=== PATIENT | female | born 1985 | race Caucasian/White ===

== ENCOUNTER 2016-11-05 12:02 | Emergency (ER) | payer MEDICAID ==
[~2016-11-05] VITALS: Ht 167.6 cm; Wt 49.9 kg
[2016-11-05 12:02] VITALS: BP 126/86
--- NOTE | 2016-11-05 12:20 | NUR ---
JEFF QUALITY CONTROLLER AT BEDSIDE FOR EVAL.
[2016-11-05] MEDS ORDERED: IV NS 0.9% 1,000 ML BAG IV ONE (12:30)
[2016-11-05] MEDS ORDERED: ONDANSETRON HCL/PF 4 MG/2 ML VIAL IVP ONE (12:30)
[2016-11-05 12:39] LABS: BASOPHILS # (AUTO) 0.1 /CMM (0.0-0.2); BASOPHILS % (AUTO) 1.1 % (0.0-2.0); EOSINOPHILS # (AUTO) 0.1 /CMM (0.0-0.7); EOSINOPHILS % (AUTO) 1.8 % (0.0-6.0); HEMATOCRIT 36 % (33-45); HEMOGLOBIN 12.7 g/dL (11.5-14.8); LYMPHOCYTES # (AUTO) 1.7 /CMM (0.8-4.8); LYMPHOCYTES % (AUTO) 31.1 % (20.0-44.0); MEAN CORPUSCULAR HEMOGLOBIN 29 PG (26.0-33.0); MEAN CORPUSCULAR HGB CONC 35 g/dl (31.0-36.0); MEAN CORPUSCULAR VOLUME 82 fL (82-100); MONOCYTES # (AUTO) 0.4 /CMM (0.1-1.30); MONOCYTES % (AUTO) 8.2 % (2.0-12.0); NEUTROPHILS # (AUTO) 3.2 /CMM (1.8-8.9); NEUTROPHILS % (AUTO) 57.8 % (43.0-81.0); PLATELET COUNT (AUTO) 239 /CMM (150-450); RDW COEFFICIENT OF VARIATION 12.8 (11.5-15.0); RED BLOOD CELL COUNT(AUTO) 4.43 MIL/uL (4.0-5.2); WHITE BLOOD COUNT (AUTO) 5.5 K/uL (4.3-11.0)
[2016-11-05] MEDS ORDERED: IV NS 0.9% 1,000 ML ONE (12:42)
[2016-11-05] MEDS ORDERED: IV SET PRIMARY 1 EA INFUS.SET MC ONE (12:42)
[2016-11-05 12:43] LABS: APPEARANCE,URINE Clear (CLEAR); BILIRUBIN,URINE Negative (NEGATIVE); BLOOD, URINE Negative Ery/uL (NEGATIVE); COLOR,URINE Yellow (YELLOW); KETONES,URINE Negative (NEGATIVE); LEUKOCYTE ESTERASE ,URINE Negative (NEGATIVE); NITRITE, URINE Negative (NEGATIVE); PROTEIN,URINE Negative (NEGATIVE); UGLUCOSE Negative (NEGATIVE); UROBILINOGEN,URINE 0.2 EU/dL (0.2)
--- NOTE | 2016-11-05 12:49 | NUR ---
RADIOLOGY AT BEDSIDE FOR L FOOT XRAY.
--- NOTE | 2016-11-05 12:55 | NUR ---
PT TO RADIOLOGY FOR ABDOMINAL CT SCAN VIA [facility].
[2016-11-05 12:59] LABS: ALBUMIN 4.2 g/dL (3.4-5.0); BILIRUBIN,DIRECT 0.1 mg/dL (0.0-0.2); BILIRUBIN,TOTAL 0.4 mg/dL (0.2-1.0); CALCIUM, SERUM 9.6 mg/dL (8.5-10.1); CREATININE 0.7 mg/dL (0.6-1.3); POTASSIUM 3.9 mmol/L (3.5-5.1); TOTAL PROTEIN, SERUM 8.3 g/dL (6.4-8.2)
--- NOTE | 2016-11-05 13:51 | NUR ---
Patient discharged to home in stable condition. Written and verbal after care instructions given. Patient verbalizes understanding of instruction.IV removed. Catheter intact and site benign. Pressure and 4x4 applied to site. No bleeding noted.
== END 2016-11-05 13:52 | disposition home or self-care (01) ==
LOC: ER 12:04
DX: R10.32 Left lower quadrant pain (principal); S90.112A Contusion of left great toe without damage to nail, initial encounter; W22.8XXA Striking against or struck by other objects, initial encounter; Y93.89 Activity, other specified; Y92.89 Other specified places as the place of occurrence of the external cause; Y99.8 Other external cause status
CPT/HCPCS: 36415; 73630-TC; 80048-TC; 80076-TC; 81000-TC; 83690-TC; 85025-TC; A4606; J7030; Z7610

== ENCOUNTER 2017-06-10 22:20 | Emergency (ER) | payer MEDICAID ==
[~2017-06-10] VITALS: Ht 172.7 cm; Wt 50.3 kg
[2017-06-10 22:26] VITALS: BP 112/72
[2017-06-11] MEDS ORDERED: IBUPROFEN 400 MG TABLET ONE (00:42)
[2017-06-11] MEDS ORDERED: ONDANSETRON 4 MG TAB.RAPDIS ONE (00:42)
[2017-06-11] MEDS ORDERED: HYDROCODONE/APAP 5/325MG 1 EACH TABLET ONE (00:42)
--- NOTE | 2017-06-11 00:53 | NUR ---
medicated patient as ordered.
[2017-06-11] MEDS ORDERED: ONDANSETRON 4 MG TAB.RAPDIS SL ONE (01:00)
[2017-06-11] MEDS ORDERED: IBUPROFEN 400 MG TABLET PO ONE (01:00)
[2017-06-11] MEDS ORDERED: HYDROCODONE/APAP 5/325MG 1 EACH TABLET PO ONE (01:00)
== END 2017-06-11 00:54 | disposition home or self-care (01) ==
LOC: ER 22:28
DX: K08.89 Other specified disorders of teeth and supporting structures (principal); R13.19 Other dysphagia
CPT/HCPCS: 99284; A4606; Q0162; Z7610

== ENCOUNTER 2018-03-10 11:25 | Emergency (ER) | payer MEDICAID ==
[~2018-03-10] VITALS: Ht 165.1 cm; Wt 56.2 kg
--- NOTE | 2018-03-10 12:30 | NUR ---
L SIDED RIB PAIN S/P GLF 5 DAYS FACT CHECKER. PT SEEN & EVAL'D BY BRANDI VERA. AAOX3, VSS, NO RESP DISTRESS NOTED. PT BACK FROM XRAY. NAD NOTED @ THIS TIME & WILL CONT TO MONITOR.
--- NOTE | 2018-03-10 13:15 | NUR ---
Patient discharged to home in stable condition. Written and verbal after care instructions given. Patient verbalizes understanding of instruction.
[2018-03-10 13:16] VITALS: BP 118/89
== END 2018-03-10 13:17 | disposition home or self-care (01) ==
LOC: ER 11:26
DX: M25.512 Pain in left shoulder (principal); R07.81 Pleurodynia; Z60.2 Problems related to living alone; W10.8XXA Fall (on) (from) other stairs and steps, initial encounter; Y93.89 Activity, other specified; Y92.098 Other place in other non-institutional residence as the place of occurrence of the external cause; Y99.8 Other external cause status
CPT/HCPCS: 71100-TC; 73030-TC; A4606; Z7610

== ENCOUNTER 2021-03-13 13:25 | Emergency (ER) | payer MEDICAID ==
[~2021-03-13] VITALS: Ht 167.6 cm; Wt 53.1 kg
--- NOTE | 2021-03-13 13:45 | NUR ---
PATIENT BIBS, C/O RIGHT SIDED NUMBNESS OF HER BODY. O SOB. RESPIRATIONS EVEN AND UNLABORED. PATIENT ALERT AND ORIENTED X4. DENIES ANY PAIN AT THIS TIME. WILL CONTINUE TO MONITOR.
[2021-03-13 14:07] LABS: BASOPHILS % (AUTO) 0.9 % (0.0-2.0); EOSINOPHILS % (AUTO) 0.6 % (0.0-6.0); HEMATOCRIT 40 % (33-45); HEMOGLOBIN 13.5 g/dL (11.5-14.8); LYMPHOCYTES # (AUTO) 1.4 K/uL (0.8-4.8); LYMPHOCYTES % (AUTO) 29.1 % (20.0-44.0); MEAN CORPUSCULAR HGB CONC 34 g/dl (31.0-36.0); MEAN CORPUSCULAR VOLUME 84 fL (82-100); MONOCYTES # (AUTO) 0.5 K/uL (0.1-1.30); MONOCYTES % (AUTO) 9.6 % (2.0-12.0); NEUTROPHILS # (AUTO) 2.9 K/uL (1.8-8.9); NEUTROPHILS % (AUTO) 59.8 % (43.0-81.0); PLATELET COUNT (AUTO) 232 K/uL (150-450); RED BLOOD CELL COUNT(AUTO) 4.76 MIL/uL (4.0-5.2); WHITE BLOOD COUNT (AUTO) 4.9 K/uL (4.3-11.0)
[2021-03-13] MEDS: IV NS 0.9% 1,000 ML BAG IV ONE (14:13)
[2021-03-13 14:14] LABS: CALCIUM, SERUM 9.5 mg/dL (8.5-10.1); CARBON DIOXIDE 24 mmol/L (21-32); CHLORIDE 103 mmol/L (98-107); CREATININE 0.7 mg/dL (0.6-1.3); GLUCOSE 105 mg/dL (74-106); POTASSIUM 3.4 mmol/L (3.5-5.1); SODIUM SERUM 140 mmol/L (136-145); UREA NITROGEN, BLOOD 8 mg/dL (7-18)
[2021-03-13 14:28] LABS: BILIRUBIN,URINE Negative (NEGATIVE); COLOR,URINE YELLOW (YELLOW); LEUKOCYTE ESTERASE ,URINE Trace (NEGATIVE); NITRITE, URINE Negative (NEGATIVE); PROTEIN,URINE Negative (NEGATIVE); UGLUCOSE Negative (NEGATIVE); UROBILINOGEN,URINE 0.2 EU/dL (0.2)
[2021-03-13 14:29] LABS: BACTERIA,URINE Few /HPF (None Seen); RBC,URINE 0-2 /HPF (0-2); SQUAMOUS EPITHELIAL CELL,UR Few /HPF (None Seen)
[2021-03-13 15:29] LABS: ABG BASE EXCESS -2.8 mmol/L; ABG OXYGEN SATURATION 96.8 % (92.0-98.5); ABG PH 7.446 (7.350-7.450); ABG PO2 93.7 mmHg (75.0-100.0); AaDO2 20.1 mmHg; COHb 0.3 % (0.5-1.5); MetHb 0.3 % (0.0-1.5); O2Hb 96.2 % (94.0-97.0); SITE, ABG Right Brachial; VENT MODE, BG room air
[2021-03-13] MEDS: ASPIRIN 81 MG TAB.CHEW PO ONE (15:30)
[2021-03-13] MEDS ORDERED: ASPIRIN 81 MG TAB.CHEW ONE (15:35)
[2021-03-13] MEDS ORDERED: POTASSIUM CHLORIDE 20 MEQ TAB.PRT.SR PO ONE (15:35)
[2021-03-13] MEDS: POTASSIUM CHLORIDE 20 MEQ TAB.PRT.SR PO ONE (16:00)
[2021-03-13 17:00] VITALS: BP 110/80
--- NOTE | 2021-03-13 17:00 | NUR ---
Patient discharged to home in stable condition. Written and verbal after care instructions given. Patient verbalizes understanding of instruction.
== END 2021-03-13 17:01 | disposition home or self-care (01) ==
LOC: ER 13:28
DX: R20.2 Paresthesia of skin (principal); E86.0 Dehydration; R00.0 Tachycardia, unspecified; R51.9 Headache, unspecified
CPT/HCPCS: 36415; 36600; 70450-TC; 80048-TC; 81001; 82803-TC; 84443-TC; 84484-TC; 84703-TC; 85025-TC; 85730-TC

== ENCOUNTER 2022-02-04 20:35 | Emergency (ER) | payer MEDICAID ==
[~2022-02-04] VITALS: Ht 165.1 cm; Wt 66.2 kg
--- NOTE | 2022-02-04 20:49 | NUR ---
BIBFAMILY C/O HIGH HEART RATE SINCE THE AM, FEELING NAUSEOUS. PT A/OX4. TOLERATING R/A SOB; SATTING WELL AT 100%. CONNECTED PT TO POX AND MONITOR. SAFETY MEASURES IN PLACE
--- NOTE | 2022-02-04 20:49 | NUR ---
EMT AT BEDSIDE FOR EKG
[2022-02-04] MEDS ORDERED: LORAZEPAM 1 MG TABLET ONE (21:10)
--- NOTE | 2022-02-04 21:29 | NUR ---
Patient discharged to home in stable condition. Written and verbal after care instructions given. Patient verbalizes understanding of instruction. pt ambulatory with a steady gait
[2022-02-04] MEDS ORDERED: LORAZEPAM 1 MG TABLET PO ONE (21:30)
[2022-02-04 21:44] VITALS: BP 128/80
== END 2022-02-04 21:44 | disposition home or self-care (01) ==
LOC: ER 20:39
DX: F41.9 Anxiety disorder, unspecified (principal)
CPT/HCPCS: 71045-TC

== ENCOUNTER 2022-03-24 04:09 | Emergency (ER) | payer MEDICAID ==
[~2022-03-24] VITALS: Ht 165.1 cm; Wt 62.6 kg
--- NOTE | 2022-03-24 04:37 | NUR ---
Pt Bibself from home c/o palpitations and abd painx 1hr. Pt A/ox4. Tolerating R/A well with no SOB. Connected pt to POX and monitor. Safety measures in place.
[2022-03-24] MEDS ORDERED: ONDANSETRON HCL/PF 4 MG/2 ML VIAL ONE (04:51)
[2022-03-24] MEDS ORDERED: MORPHINE SULFATE INJ 2 MG/ML DISP.SYRIN ONE (04:51)
--- NOTE | 2022-03-24 04:59 | NUR ---
LAC #20G S/L BLOOD AND URINE COLLECTED AND SENT TO LAB. PT SIGNED WAIVER FORM
[2022-03-24] MEDS ORDERED: MORPHINE SULFATE INJ 2 MG/ML DISP.SYRIN IV ONE (05:00)
[2022-03-24] MEDS ORDERED: IV NS 0.9% 1,000 ML BAG IV ONE (05:00)
[2022-03-24] MEDS ORDERED: ONDANSETRON HCL/PF 4 MG/2 ML VIAL IVP ONE (05:00)
--- NOTE | 2022-03-24 05:02 | NUR ---
WAIVER SIGNED AND PLACED IN PT CHART
[2022-03-24 05:15] LABS: BASOPHILS % (AUTO) 0.4 % (0.0-2.0); EOSINOPHILS % (AUTO) 1.5 % (0.0-6.0); HEMATOCRIT 37 % (33-45); HEMOGLOBIN 12.4 g/dL (11.5-14.8); LYMPHOCYTES # (AUTO) 1.2 K/uL (0.8-4.8); MEAN CORPUSCULAR HGB CONC 33 g/dl (31.0-36.0); MEAN CORPUSCULAR VOLUME 85 fL (82-100); MONOCYTES # (AUTO) 0.7 K/uL (0.1-1.30); MONOCYTES % (AUTO) 7.9 % (2.0-12.0); NEUTROPHILS % (AUTO) 77.2 % (43.0-81.0); PLATELET COUNT (AUTO) 189 K/uL (150-450); RED BLOOD CELL COUNT(AUTO) 4.35 MIL/uL (4.0-5.2); WHITE BLOOD COUNT (AUTO) 9.1 K/uL (4.3-11.0)
[2022-03-24 05:19] LABS: BILIRUBIN,URINE NEGATIVE (NEGATIVE); COLOR,URINE YELLOW (YELLOW); LEUKOCYTE ESTERASE ,URINE NEGATIVE (NEGATIVE); NITRITE, URINE NEGATIVE (NEGATIVE); PROTEIN,URINE NEGATIVE (NEGATIVE); UGLUCOSE NEGATIVE (NEGATIVE); UROBILINOGEN,URINE 0.2 EU/dL (0.2)
--- NOTE | 2022-03-24 05:22 | NUR ---
PT TAKEN TO CT VIA [facility]
--- NOTE | 2022-03-24 05:22 | NUR ---
PT BEING TRANSPORTED TO CT VIA [facility]
[2022-03-24 05:27] LABS: CALCIUM, SERUM 8.5 mg/dL (8.5-10.1); CARBON DIOXIDE 29 mmol/L (21-32); CHLORIDE 106 mmol/L (98-107); CREATININE 0.7 mg/dL (0.6-1.3); GLUCOSE 99 mg/dL (74-106); POTASSIUM 3.5 mmol/L (3.5-5.1); SODIUM SERUM 141 mmol/L (136-145); UREA NITROGEN, BLOOD 12 mg/dL (7-18)
[2022-03-24 05:32] LABS: ALANINE AMINOTRANSFERASE 58 U/L (12-78); ALBUMIN 3.4 g/dL (3.4-5.0); ALKALINE PHOSPHATASE 84 U/L (46-116); ASPARTATE AMINOTRANSFERASE 33 U/L (15-37); BILIRUBIN,DIRECT 0.1 mg/dL (0.0-0.2); BILIRUBIN,TOTAL 0.3 mg/dL (0.2-1.0); LIPASE 59 U/L (73-393); TOTAL PROTEIN, SERUM 7.2 g/dL (6.4-8.2)
--- NOTE | 2022-03-24 05:38 | NUR ---
PT RETURNED FROM CT
--- NOTE | 2022-03-24 05:38 | NUR ---
PT RETURNED TO ER BED 1
--- NOTE | 2022-03-24 07:06 | NUR ---
RETAIL PROPERTY MANAGER AT PT'S BEDSIDE
--- NOTE | 2022-03-24 07:34 | NUR ---
URINE SPECIMEN COLLECTED SENT TO LAB
[2022-03-24] MEDS ORDERED: FAMO20TA8 PO (07:59)
[2022-03-24] MEDS ORDERED: MAG355OR18 PO (07:59)
[2022-03-24] MEDS ORDERED: ONDA4TAB5 PO (07:59)
[2022-03-24 08:00] VITALS: BP 125/75
== END 2022-03-24 08:01 | disposition home or self-care (01) ==
LOC: ER 04:11
DX: R10.13 Epigastric pain (principal); R00.2 Palpitations; R10.32 Left lower quadrant pain
CPT/HCPCS: 99285; 74176; 96374; 71045; 96361; 93005; 85025; 80048; 83690; 80076; 84703; 81003; 36415; 84484 ×2; 85730; J2405; J7030; J2270

== ENCOUNTER 2025-06-26 22:10 | Emergency (ER) | payer MEDICAID ==
[~2025-06-26] VITALS: Ht 165.1 cm; Wt 67.6 kg
[~2025-06-26 22:10] MED LIST: FAMO20TA8 PO; MAG355OR18 PO; ONDA4TAB5 PO
[2025-06-26] MEDS ORDERED: ACETAMINOPHEN ES 500 MG TABLET ONE (22:42)
[2025-06-26] MEDS ORDERED: NAPROXEN 250 MG TABLET ONE (22:43)
[2025-06-26] MEDS: NAPROXEN 250 MG TABLET PO ONE (22:44)
[2025-06-26] MEDS: ACETAMINOPHEN ES 500 MG TABLET PO ONE (22:44)
[2025-06-27] MEDS ORDERED: LIDO700A30 TP (00:05)
[2025-06-27] MEDS ORDERED: NAPR-1009 PO (00:06)
[2025-06-27] MEDS ORDERED: ACET-3102 PO (00:06)
[2025-06-27 00:11] VITALS: BP 130/82; TEMP 98.5; O2SAT 97
== END 2025-06-27 00:12 | disposition home or self-care (01) ==
LOC: ER 22:12
DX: R07.9 Chest pain, unspecified (principal); M25.512 Pain in left shoulder; W18.2XXA Fall in (into) shower or empty bathtub, initial encounter; Y93.E1 Activity, personal bathing and showering; Y92.091 Bathroom in other non-institutional residence as the place of occurrence of the external cause; Y99.9 Unspecified external cause status
CPT/HCPCS: 71045-TC; 73030-TC